=== PATIENT | male | born 2000 | race African-American/Black ===

== ENCOUNTER 2018-05-16 14:57 | Emergency (ER) | payer MEDICAID ==
[~2018-05-16] VITALS: Ht 167.6 cm; Wt 86.0 kg
[2018-05-16] MEDS ORDERED: BACITRACIN ZINC OINT UDPKT TOP ONE (19:45)
[2018-05-16 20:14] VITALS: BP 124/79
== END 2018-05-16 20:10 | disposition home or self-care (01) ==
LOC: ER 17:26
DX: S61.402D Unspecified open wound of left hand, subsequent encounter (principal); F12.10 Cannabis abuse, uncomplicated; Z48.01 Encounter for change or removal of surgical wound dressing; W33.01XD Accidental discharge of shotgun, subsequent encounter
CPT/HCPCS: 99283; X7700; Z7610

== ENCOUNTER 2018-05-20 14:19 | Emergency (ER) | payer MEDICAID ==
[~2018-05-20] VITALS: Ht 172.7 cm; Wt 85.0 kg
[2018-05-20 14:39] VITALS: BP 132/60
[2018-05-20] MEDS ORDERED: CLIN300C11 PO (14:47)
== END 2018-05-20 17:42 | disposition left against medical advice (07) ==
LOC: ER 14:19
DX: S61.402D Unspecified open wound of left hand, subsequent encounter (principal); W34.09XD Accidental discharge from other specified firearms, subsequent encounter
CPT/HCPCS: 99281

== ENCOUNTER 2018-05-23 16:11 | Emergency (ER) | payer MEDICAID ==
[~2018-05-23] VITALS: Ht 172.7 cm; Wt 84.0 kg
[~2018-05-23 16:11] MED LIST: CLIN300C11 PO
[2018-05-23] MEDS ORDERED: BACITRACIN ZINC OINT UDPKT TOP ONE (19:45)
[2018-05-23 20:08] VITALS: BP 131/72
== END 2018-05-23 20:11 | disposition home or self-care (01) ==
LOC: ER 16:11
DX: S61.412D Laceration without foreign body of left hand, subsequent encounter (principal); F12.10 Cannabis abuse, uncomplicated; Z79.899 Other long term (current) drug therapy; W33.01XD Accidental discharge of shotgun, subsequent encounter
CPT/HCPCS: 99283